=== PATIENT | male | born 1960 | race African-American/Black ===

== ENCOUNTER → 2018-02-19 | Outpatient (CLI) | payer OTHER | END | disposition home or self-care (01) | LOC: PCVCIMAG 11:21 | DX: I08.1 Rheumatic disorders of both mitral and tricuspid valves (principal); I10 Essential (primary) hypertension; I42.9 Cardiomyopathy, unspecified | CPT/HCPCS: 93306 ==

== ENCOUNTER → 2019-06-12 | Outpatient (CLI) | payer OTHER ==
--- NOTE | 2019-06-12 09:58 | PCVCIMAG ---
APPROVED REPORT Study performed: 06/12/2019 09:01:19 EXAM: Comprehensive 2D, Doppler, and color-flow Echocardiogram Patient Location: Echo lab Status: routine BSA: 1.76 HR: 82 bpmBP: 108/74 mmHg Rhythm: NSR Other Information Study Quality: Good Risk Factors: Cardiac Risk Factors: HTN Indications Cardiomyopathy Edema 2D Dimensions IVSd: 5.63 (7-11mm)LVOT Diam: 20.42 (18-24mm) LVDd: 55.55 mm PWd: 7.71 (7-11mm)Ascending Ao: 31.45 (22-36mm) LVDs: 48.69 (25-40mm) Left Atrium: 37.01 (27-40mm) Aortic Root: 30.79 mm LV Single Plane 4CH: 33.10 % LV Single Plane 2CH: 36.43 % Biplane EF: 35.8 % Volumes Left Atrial Volume (Systole) Single Plane 4CH: 45.89 mLSingle Plane 2CH: 59.31 mL LA ESV Index: 31.00 mL/m2 Aortic Valve AoV Peak Neto.: 1.50 m/s AO Peak Gr.: 9.00 mmHgLVOT Max P.88 mmHg LVOT Max V: 0.69 m/s NICKI Vmax: 1.50 cm2 Mitral Valve E/A Ratio: 1.0 MV Decel. Time: 252.89 ms MV E Max Neto.: 0.87 m/s MV A Neto.: 0.90 m/s IVRT: 58.82 ms TDI E/Lateral E': 12.43E/Medial E': 17.40 Medial E' Neto.: 0.05 m/s Lateral E' Neto.: 0.07 m/s Pulmonary Valve PV Peak Neto.: 0.77 m/sPV Peak Gr.: 2.36 mmHg Pulmonary Vein P Vein S: 0.49 m/sP Vein A: 0.18 m/s P Vein D: 0.36 m/sP Vein A Dur.: 93.4 msec P Vein S/D Ratio: 1.36 Tricuspid Valve TR Peak Neto.: 2.58 m/sRAP Estimate: 7.00 mmHg TR Peak Gr.: 26.59 mmHg PA Pressure: 34.00 mmHg Left Ventricle Left ventricle is at the upper limits of normal. Global moderate-severe hypokinesis. There is normal left ventricular wall thickness. Left ventricular systolic function is moderate to severely decreased. LVEF is 35%. Mild diastolic dysfunction is present (impaired relaxation pattern). Right Ventricle Right ventricle is at the upper limits of normal. The right ventricular systolic function is normal. Atria The left atrium size is normal. The right atrium size is normal. Aortic Valve The aortic valve is normal in structure. No aortic regurgitation is present. There is no aortic valvular stenosis. Mitral Valve The mitral valve is normal in structure. Trace to mild mitral regurgitation. No evidence of mitral valve stenosis. Tricuspid Valve The tricuspid valve is normal in structure. Mild tricuspid regurgitation. Pulmonary artery pressure is 34 mmHg. Pulmonic Valve The pulmonary valve is normal in structure. Trace pulmonic regurgitation. Great Vessels The aortic root is normal in size. IVC is normal in size and collapses >50% with inspiration. Pericardium There is no pericardial effusion. <Conclusion> Left ventricle is at the upper limits of normal. There is normal left ventricular wall thickness. Left ventricular systolic function is moderate to severely decreased. Mild diastolic dysfunction is present (impaired relaxation pattern). Right ventricle is at the upper limits of normal. The left atrium size is normal. The aortic valve is normal in structure. Trace to mild mitral regurgitation. Mild tricuspid regurgitation. Pulmonary artery pressure is 34 mmHg.
== END | disposition home or self-care (01) ==
LOC: PCVCIMAG 14:42
PROVIDERS: ATTEND Internal Medicine Cardiovascular Disease
DX: I08.1 Rheumatic disorders of both mitral and tricuspid valves (principal); I42.9 Cardiomyopathy, unspecified; I10 Essential (primary) hypertension; Z88.8 Allergy status to other drugs, medicaments and biological substances; Z79.899 Other long term (current) drug therapy; Z72.89 Other problems related to lifestyle
CPT/HCPCS: 93306